=== PATIENT | female | born 1970 | race African-American/Black ===

== ENCOUNTER 2022-04-21 16:07 | Emergency (ER) | payer MEDICARE, BC ==
[~2022-04-21] VITALS: Ht 165.1 cm; Wt 48.0 kg
[2022-04-21] MEDS ORDERED: KETOROLAC 30MG/ML VIAL IM ONE (17:15)
[2022-04-21] MEDS ORDERED: ACETAMINOPHEN 325MG TABLET PO ONE (17:15)
[2022-04-21] MEDS ORDERED: METHOCARBAMOL 500MG TABLET PO ONE (17:15)
[2022-04-21] MEDS ORDERED: LIDOCAINE 5% PATCH TOP SCH (17:15)
[2022-04-21 17:30] VITALS: BP 94/55
[2022-04-21] MEDS ORDERED: TOPUD MT (20:04)
[2022-04-21] MEDS ORDERED: IBUP-2028 MT (20:04)
[2022-04-21] MEDS ORDERED: METH-653 MT (20:04)
== END 2022-04-21 20:26 | disposition home or self-care (01) ==
LOC: ER 16:07
DX: M54.50 Low back pain, unspecified (principal); G89.29 Other chronic pain; M54.30 Sciatica, unspecified side; G62.9 Polyneuropathy, unspecified; Z98.84 Bariatric surgery status; Z93.1 Gastrostomy status
CPT/HCPCS: 96372; 99284; J1885